=== PATIENT | female | born 1970 | race Caucasian/White ===

== ENCOUNTER 2018-11-10 08:11 | Day surgery (SDC) | payer MEDICARE ==
[2018-11-10] MEDS ORDERED: Marcaine 0.5% SDV 10 ML IJ ONE (08:12)
[2018-11-10] MEDS ORDERED: DIPRIVAN 200 MG/20 ML IV ONE (08:12)
[2018-11-10] MEDS ORDERED: Depo-Medrol 40 MG/ML IM ONE (08:12)
--- NOTE | 2018-11-10 10:35 | XRAY ---
8 seconds fluoroscopy time in surgery for right knee injection.
--- NOTE | 2018-11-10 10:35 | XRAY ---
9 seconds fluoroscopy time in surgery for left knee injection.
--- NOTE | 2018-11-10 10:35 | XRAY ---
Indication: Left knee injection. Intraoperative fluoroscopy was provided for 9 seconds. 2 digital spot images submitted for interpretation demonstrates single needle tip projecting in the intercondylar notch. Small amount of contrast injected for needle tip placement. Correlate with intraoperative findings/report.
--- NOTE | 2018-11-10 10:35 | XRAY ---
Indication: Right knee injection. Intraoperative fluoroscopy was provided for 8 seconds. Single digital spot image submitted for interpretation demonstrates needle tip projecting in the intercondylar notch. Small amount of contrast injected for needle tip placement. Correlate with intraoperative findings/report.
[2018-11-10] MEDS ORDERED: Lactated Ringers 1,000 ML IV ONE (14:45)
== END 2018-11-10 10:10 | disposition home or self-care (01) ==
LOC: SDC-PAIN 08:11
PROVIDERS: ATTEND Psychiatry & Neurology Pain Medicine
DX: M25.561 Pain in right knee (principal); M25.562 Pain in left knee; M17.0 Bilateral primary osteoarthritis of knee
CPT/HCPCS: 20610; 73560; 76000; 77002; 82962; J1030; J2704; Q9966

== ENCOUNTER 2021-07-10 09:41 | Day surgery (SDC) | payer MEDICARE ==
[2021-07-10] MEDS ORDERED: BUPIVACAINE 0.5% VIAL IJ ONE (09:42)
[2021-07-10] MEDS ORDERED: Depo-Medrol 40 MG/ML IM ONE (09:42)
[2021-07-10] MEDS ORDERED: Lactated Ringers 1,000 ML IV ONE (10:32)
[2021-07-10] MEDS ORDERED: Ketamine HCl 50 MG/ML ONE (10:52)
[2021-07-10] MEDS ORDERED: DIPRIVAN 200 MG/20 ML IV ONE (10:52)
--- NOTE | 2021-07-10 17:00 | XRAY ---
9 seconds of fluoroscopy was used in surgery for a intra-articular injection of the left knee.
--- NOTE | 2021-07-12 09:27 | XRAY ---
Indication: Left knee injection. Intraoperative fluoroscopy was provided for 9 seconds. A single digital spot image submitted for interpretation demonstrates a needle tip projected over the left femur intercondylar notch. A small amount of contrast has been injected for needle tip placement. Correlate with intraoperative findings/report.
== END 2021-07-10 11:22 | disposition home or self-care (01) ==
LOC: SDC-PAIN 09:41
PROVIDERS: ATTEND Psychiatry & Neurology Pain Medicine
DX: M17.12 Unilateral primary osteoarthritis, left knee (principal); E11.9 Type 2 diabetes mellitus without complications; Z79.899 Other long term (current) drug therapy
CPT/HCPCS: 20610; 73560; 77002; 82947; J1030; J2704; Q9966

== ENCOUNTER 2022-09-10 08:43 | Day surgery (SDC) | payer MEDICARE ==
[2022-09-10] MEDS ORDERED: Depo-Medrol 40 MG/ML IM ONE (08:44)
[2022-09-10] MEDS ORDERED: Marcaine Mpf 0.5% Vial 30 Ml IJ ONE (08:44)
[2022-09-10] MEDS ORDERED: DIPRIVAN 200 MG/20 ML IV ONE (11:02)
[2022-09-10] MEDS ORDERED: Lactated Ringers 1,000 ML IV ONE (12:25)
--- NOTE | 2022-09-10 12:43 | XRAY ---
Indication: Left knee injection. Intraoperative fluoroscopy provided for 6 seconds. Single digital spot image submitted for interpretation demonstrates needle tip projecting over the left femur intercondylar notch. Small amount of contrast injected for needle tip placement. Correlate with intraoperative findings/report.
--- NOTE | 2022-09-10 12:43 | XRAY ---
Indication: Right knee injection. Intraoperative fluoroscopy provided for 3 seconds. Single digital spot image submitted for interpretation demonstrates needle tip projecting over the right femur intercondylar notch. Small amount of contrast injected for needle tip placement. Correlate with intraoperative findings/report.
--- NOTE | 2022-09-10 14:24 | XRAY ---
3 seconds fluoroscopy time in surgery for left knee injection.
--- NOTE | 2022-09-10 14:24 | XRAY ---
6 seconds fluoroscopy time in surgery for right knee injection.
== END 2022-09-10 11:45 | disposition home or self-care (01) ==
LOC: SDC-PAIN 08:43
PROVIDERS: ATTEND Psychiatry & Neurology Pain Medicine
DX: M17.0 Bilateral primary osteoarthritis of knee (principal); E11.9 Type 2 diabetes mellitus without complications; Z79.899 Other long term (current) drug therapy
CPT/HCPCS: 20610; 73560; 77002; 82947; J1030; J2704; Q9966